=== PATIENT | male | born 1985 | race Caucasian/White ===

== ENCOUNTER 2017-03-25 18:46 | Inpatient (IN) | payer OTHER ==
[~2017-03-25] VITALS: Ht 175.3 cm; Wt 87.0 kg
[~2017-03-25 18:46] MED LIST: CARV3.12 PO; LISI-523 PO
[2017-03-25 20:24] LABS: ADD SCAN DIFF NO
[2017-03-25 20:29] LABS: BASOPHILS % 0.1 % (0.0-2.0); EOSINOPHILS % 0.1 % (0.0-7.0); HEMATOCRIT 40.6 % (42.0-52.0); HEMOGLOBIN 13.7 g/dl (14.0-18.0); LYMPHOCYTES % 10.3 % (15.0-51.0); MEAN CORPUSCULAR HEMOGLOBIN 29.1 pg (29.0-33.0); MEAN CORPUSCULAR HGB CONC 33.7 g/dl (32.0-37.0); MEAN CORPUSCULAR VOLUME 86.4 fl (82.0-101.0); MEAN PLATELET VOLUME 11.5 fl (7.4-10.4); MONOCYTES % 9.7 % (0.0-11.0); NEUTROPHILS % 79.5 % (39.0-77.0); PLATELET COUNT 182 10^3/UL (140-415); RED CELL DISTRIBUTION WIDTH 12.9 % (11.5-14.5); WHITE BLOOD COUNT 10.1 10^3/ul (4.8-10.8)
[2017-03-25 20:44] LABS: ALBUMIN 5.1 g/dl (3.3-4.9); ALBUMIN/GLOBULIN RATIO 1.64; BILIRUBIN,INDIRECT 0.3 mg/dl (0-1.1); BILIRUBIN,TOTAL 0.3 mg/dl (0.2-1.3); CALCIUM 9.4 mg/dl (8.4-10.2); CREATININE 0.92 mg/dl (0.61-1.24); POTASSIUM 3.9 mmol/L (3.5-5.1); TOTAL PROTEIN 8.2 g/dl (6.1-8.1)
[2017-03-25 21:07] LABS: TROPONIN-I 7.41 ng/ml (0.00-0.12)
[2017-03-25] MEDS ORDERED: ASPIRIN 325 MG TAB PO STA (21:07)
[2017-03-25] MEDS ORDERED: IBUPROFEN 600 MG TAB PO STA (21:12)
[2017-03-25 21:30] VITALS: TEMP 98.7
--- NOTE | 2017-03-25 21:32 | ERA ---
ER Documentation Chief Complaint Date/Time DATE: 03/25/17 TIME: 21:26 Chief Complaint intermittent CP since this am, sudden onset HPI 31-year-old man complains of pressure-like chest pain beginning this morning at around 6 AM lasting 20 minutes, resolving spontaneously, and then returning a few hours later and lasting for a few hours. Patient states discomfort is similar to previous episode he had about 2 years ago at which time he was diagnosed with myocarditis. Patient states for the last 3 days he has had tactile fevers. He denies shortness of breath, no vomiting or diarrhea, no headache or blurry vision, no calf or leg swelling. Patient has had no recent antibiotic use, no recent travel. Patient denies drug abuse. ROS All systems reviewed and are negative except as per history of present illness. Medications Home Meds Active Scripts Lisinopril* (Zestril*) 5 Mg Tab, 2.5 MG PO DAILY, #30 TAB Prov:COURT FLANNERY MD 08/20/15 Carvedilol* (Coreg*) 3.125 Mg Tab, 3.125 MG PO Q12, #60 TAB Prov:COURT FLANNERY MD 08/20/15 Allergies Allergies: Coded Allergies: No Known Allergy (Unverified , 08/19/15) PMhx/Soc History of non-ST elevation myocardial infarction and myositis, hypertension, previous coronary angiogram revealing no obstructive lesions. History of Surgery: No Anesthesia Reaction: No Hx Neurological Disorder: No Hx Respiratory Disorders: No Hx Cardiac Disorders: No Hx Psychiatric Problems: No Hx Miscellaneous Medical Probl: No Hx Alcohol Use: Yes (ONCE A WHILE BEER/WINE SATURDAY,SAT. LAST TIME WAS 1-2 GLASSES WINE LAST WEE) Hx Substance Use: No Hx Tobacco Use: Yes (6 CIGARETTEE/D, QUIT 2 MONTHS AGO) Smoking Status: Heavy tobacco smoker FmHx Family History: No diabetes Physical Exam Vitals Vital Signs Date Time Temp Pulse Resp B/P Pulse Ox O2 Delivery O2 Flow Rate FiO2 03/25/17 21:30 98.7 80 16 132/86 99 Room Air 03/25/17 19:18 87.0 95 18 151/100 99 Physical Exam GENERAL: Well-developed, well-nourished, well-hydrated, appears diaphoretic, afebrile HEENT: Moist mucous membranes, pink conjunctiva, no cervical spine tenderness or step-off deformities, no goiter, no jaundice or icterus, extraocular movements intact without pain. No submandibular induration, and no pharyngeal erythema NEURO: Alert and oriented 3, cranial nerves II through XII intact bilaterally, pupils equal round reactive to light, no focal deficits or facial asymmetry, sensation intact distally Strength 5/5 in upper and lower extremities bilaterally CARDIAC: Regular rate and rhythm, no murmurs rubs or gallops LUNGS: Clear bilaterally no wheezing crackles or stridor ABDOMEN: Soft nontender, no guarding, no rigidity, no rebound, no psoas sign no obturator sign. Normoactive bowel sounds SKIN: Warm and dry to touch, no abrasions, contusions, or hematomas, no lacerations, no ecchymosis, no target lesions, and without ulcers EXTREMITIES: No clubbing cyanosis or edema, calves are bilaterally symmetrical, no Homans sign, no popliteal cord sign. Distal pulses equal and bilateral PSYCH: Normal affect without agitation or irritability Result Diagram: 03/25/17200403/25/172004 Results 24 hrs Laboratory Tests Test 03/25/17 20:05 03/25/17 20:20 White Blood Count 10.110^3/ul Red Blood Count 4.7010^6/ul Hemoglobin 13.7g/dl Hematocrit 40.6% Mean Corpuscular Volume 86.4fl Mean Corpuscular Hemoglobin 29.1pg Mean Corpuscular Hemoglobin Concent 33.7g/dl Red Cell Distribution Width 12.9% Platelet Count 58516^3/UL Mean Platelet Volume 11.5fl Neutrophils % 79.5% Lymphocytes % 10.3% Monocytes % 9.7% Eosinophils % 0.1% Basophils % 0.1% Nucleated Red Blood Cells % 0.0/100WBC Neutrophils # 8.010^3/ul Lymphocytes # 1.010^3/ul Monocytes # 1.010^3/ul Eosinophils # 0.010^3/ul Basophils # 0.010^3/ul Nucleated Red Blood Cells # 0.010^3/ul Sodium Level 136mmol/L Potassium Level 3.9mmol/L Chloride Level 95mmol/L Carbon Dioxide Level 27mmol/L Anion Gap 18 Blood Urea Nitrogen 12mg/dl Creatinine 0.92mg/dl Glucose Level 159mg/dl Calcium Level 9.4mg/dl Total Bilirubin 0.3mg/dl Direct Bilirubin 0.00mg/dl Indirect Bilirubin 0.3mg/dl Aspartate Amino Transf (AST/SGOT) 81IU/L Alanine Aminotransferase (ALT/SGPT) 55IU/L Alkaline Phosphatase 58IU/L Troponin I 7.410ng/ml Total Protein 8.2g/dl Albumin 5.1g/dl Globulin 3.10g/dl Albumin/Globulin Ratio 1.64 Lipase 100U/L B-Type Natriuretic Peptide 1630PG/ML Current Medications Medications (Trade) Dose Ordered Sig/Lesly Route PRN Reason Start Time Stop Time Status Last Admin Dose Admin Aspirin (Aspirin) 325 mg ONCE STAT PO 03/25/17 21:07 03/25/17 21:08 DC 03/25/17 22:00 Ibuprofen (Motrin) 600 mg ONCE STAT PO 03/25/17 21:12 03/25/17 21:14 DC Clopidogrel Bisulfate 300 mg 300 mg ONCE ONCE PO 03/25/17 22:00 03/25/17 22:00 DC Sodium Chloride (NS) 1,000 ml @ 1,000 mls/hr Q1H ONCE IV 03/25/17 22:00 03/25/17 22:59 03/25/17 22:00 Ketorolac Tromethamine (Toradol) 15 mg ONCE STAT IV 03/25/17 21:52 03/25/17 21:55 DC 03/25/17 22:00 Procedures/MDM IV line was established patient was placed on field support specialist rhythm strip revealed a sinus rhythm at about 90 bpm with upright P and T waves. Patient was afebrile. EKG performed, read by me revealed a normal sinus rhythm at 92 bpm, normal axis , with a right ventricular conduction delay and a QRS duration of 106 ms, no concerning ST elevations or depressions noted. One AP view of the chest performed, read by me reveals no acute infiltrates, normal mediastinum, sharp costophrenic and cardiac borders, no air under the diaphragm. Otherwise unremarkable chest x-ray. EKG #2 performed, read by me revealed a normal sinus rhythm at 96 bpm, normal axis, right ventricular conduction delay with a QRS duration 106 ms, no concerning ST elevations or depressions noted. CBC was unremarkable, electrolytes normal, liver function tests normal, troponin positive at 7. I administered 1 L normal saline intravenously, aspirin 325 mg p.o. for cardioprotective measures. I obtained cardiology consultation with Dr. Munoz, he recommended Toradol and recommended against clopidogrel. Cardiac Critical Care: Time: 35 minutes, this was time separate from other billable procedures Treatments/Evaluations: Close monitoring for dangerous arrhythmia and cardiovascular collapse, while treating with advance cardiac medications and techniques. Patient will be admitted to Dr. Roldan to telemetry setting Departure Diagnosis: Primary Impression: Non-STEMI (non-ST elevated myocardial infarction) Additional Impression: Acute myocarditis Qualified Code: I40.9 - Acute myocarditis, unspecified myocarditis type Condition: KATHY Tarango MD Mar 25, 2017 21:31
--- NOTE | 2017-03-25 21:51 | RADRPT ---
PROCEDURE: XR Chest. CLINICAL INDICATION: Chest pain. TECHNIQUE: 2 frontal views of the chest. COMPARISON: 08/19/2015 FINDINGS: The cardiomediastinal silhouette is within normal limits. The lungs are clear. No signs of pleural f luid or pneumothorax are seen. The osseous structures and soft tissues are unremarkable. IMPRESSION: No evidence for active cardiopulmonary disease. RPTAT: [facility] Physician Sindhu Date Time Electronically viewed and signed by Ynes Peng Physician on 03/25/2017 21:51 RS/
[2017-03-25] MEDS ORDERED: KETOROLAC 15 MG INJ IV STA (21:52)
[2017-03-25] MEDS ORDERED: CLOPIDOGREL 75 MG TAB PO ONE (22:00)
[2017-03-25] MEDS ORDERED: SOD CHLORIDE 0.9% 1,000 ML IV ONE (22:00)
[2017-03-25 23:00] VITALS: Ht 175.3 cm; Wt 87.0 kg
[2017-03-25 23:00] LABS: CK-MB 29.4 ng/ml (0.0-2.4); TROPONIN-I 8.53 ng/ml (0.00-0.12)
[2017-03-25 23:01] LABS: BARBITURATES Negative (NEGATIVE); BENZODIAZEPINES Negative (NEGATIVE); CANNABINOIDS Negative (NEGATIVE); COCAINE Negative (NEGATIVE); OPIATES Negative (NEGATIVE)
[2017-03-25 23:17] VITALS: PULSE 93
[2017-03-26] VITALS (8 sets, daily range): BP systolic 105–128; BP diastolic 61–71; PULSE 59–73; RESP 16–20
[2017-03-26] MEDS ORDERED: ONDANSETRON 4 MG INJ IV PRN
[2017-03-26] MEDS ORDERED: ACETAMINOPHEN 325 MG TAB PO PRN
[2017-03-26] MEDS ORDERED: KETOROLAC 15 MG INJ IV PRN
[2017-03-26] MEDS ORDERED: ZOLPIDEM 5 MG TAB PO PRN
[2017-03-26] MEDS ORDERED: NITROGLYCERIN (SL) 0.4 MG TAB SL PRN
[2017-03-26 07:57] LABS: HAAIG REFLEX REFLEX FILED
[2017-03-26 07:59] LABS: ADD SCAN DIFF NO
[2017-03-26 08:13] LABS: BASOPHILS % 0.3 % (0.0-2.0); EOSINOPHILS % 0.5 % (0.0-7.0); HEMATOCRIT 38.4 % (42.0-52.0); HEMOGLOBIN 12.5 g/dl (14.0-18.0); LYMPHOCYTES # 2.2 10^3/ul (0.8-2.9); LYMPHOCYTES % 38.6 % (15.0-51.0); MEAN CORPUSCULAR HEMOGLOBIN 28.3 pg (29.0-33.0); MEAN CORPUSCULAR HGB CONC 32.6 g/dl (32.0-37.0); MEAN CORPUSCULAR VOLUME 86.9 fl (82.0-101.0); MEAN PLATELET VOLUME 11.9 fl (7.4-10.4); MONOCYTE # 0.7 10^3/ul (0.3-0.9); MONOCYTES % 12.5 % (0.0-11.0); NEUTROPHIL # 2.8 10^3/ul (1.6-7.5); NEUTROPHILS % 47.9 % (39.0-77.0); PLATELET COUNT 184 10^3/UL (140-415); RED BLOOD COUNT 4.42 10^6/ul (4.70-6.10); RED CELL DISTRIBUTION WIDTH 12.9 % (11.5-14.5); WHITE BLOOD COUNT 5.8 10^3/ul (4.8-10.8)
[2017-03-26 08:28] LABS: ALANINE AMINOTRANSFERASE 43 IU/L (13-69); ALBUMIN 4.1 g/dl (3.3-4.9); ALBUMIN/GLOBULIN RATIO 1.95; ALKALINE PHOSPHATASE 43 IU/L (42-121); ANION GAP 9 (8-16); ASPARTATE AMINO TRANSFERASE 64 IU/L (15-46); BILIRUBIN,INDIRECT 0.2 mg/dl (0-1.1); BILIRUBIN,TOTAL 0.2 mg/dl (0.2-1.3); BLOOD UREA NITROGEN 14 mg/dl (7-20); CALCIUM 9.4 mg/dl (8.4-10.2); CARBON DIOXIDE 29 mmol/L (21-31); CHLORIDE 100 mmol/L (97-110); CHOL/HDL RATIO 6.8 RATIO; CHOLESTEROL 178 mg/dl (100-200); CREATININE 0.87 mg/dl (0.61-1.24); GLUCOSE 118 mg/dl (70-220); HDL CHOLESTEROL 26 mg/dl (28-63); SODIUM 134 mmol/L (135-144); TOTAL PROTEIN 6.2 g/dl (6.1-8.1); TRIGLYCERIDES 147 mg/dl (0-149)
[2017-03-26] MEDS ORDERED: ASPIRIN 325 MG TAB PO SCH (09:00)
[2017-03-26] MEDS ORDERED: LISINOPRIL 5 MG TAB PO SCH (09:00)
[2017-03-26 09:13] LABS: HEPATITIS B CORE ANTIBODY NEGATIVE (NEGATIVE)
--- NOTE | 2017-03-26 10:00 | CONS ---
Date/Time of Note Date/Time of Note DATE: 03/26/17 TIME: 09:55 Assessment/Plan Assessment/Plan Additional Assessment/Plan 1. Chest Pain - more consistent with myocarditis vs ACS. Feels better now - will review ECHO. Based on histoory of FEVER, the Dx of FMF ought to be entertained - I spoke with primary team, will consider as colchicine might have a role. 2. Elevated troponins - now trending down, no arrhythmia - conservative care OK 3. Abn ecg - mild ST-T elevations, will follow ECHO r/o effusion. 4. Anxiety - primary team to follow. Consultation Date/Type/Reason Admit Date/Time Mar 25, 2017 at 21:50 Initial Consult Date 24 HR Interval Summary Free Text/Dictation Cardiology Consult: CC: Chest lepe HPI: 31-year-old man complains of pressure-like chest pain beginning this morning at around 6 AM lasting 20 minutes, resolving spontaneously, and then returning a few hours later and lasting for a few hours. Patient states discomfort is similar to previous episode he had about 2 years ago at which time he was diagnosed with myocarditis. Patient states for the last 3 days he has had tactile fevers. He denies shortness of breath, no vomiting or diarrhea , no headache or blurry vision, no calf or leg swelling. Patient has had no recent antibiotic use, no recent travel. Patient denies drug abuse. FEELS BETTER NOW. ROS All systems reviewed and are negative except as per history of present illness. Cardiology Consult: CC: Chest lepe HPI: 31-year-old man complains of pressure-like chest pain beginning this morning at around 6 AM lasting 20 minutes, resolving spontaneously, and then returning a few hours later and lasting for a few hours. Patient states discomfort is similar to previous episode he had about 2 years ago at which time he was diagnosed with myocarditis. Patient states for the last 3 days he has had tactile fevers. He denies shortness of breath, no vomiting or diarrhea , no headache or blurry vision, no calf or leg swelling. Patient has had no recent antibiotic use, no recent travel. Patient denies drug abuse. FEELS BETTER NOW. ROS All systems reviewed and are negative except as per history of present illness. ROS: + fever, + chills, no nausea, no vomiting, no diarrhea/constipation No recent weight changes No chest pain, no PND, no orthopnea No dizziness, blurred vision No thirst, no heat or cold intolerance Medications Home Meds Active Scripts Lisinopril* (Zestril*) 5 Mg Tab, 2.5 MG PO DAILY, #30 TAB Carvedilol* (Coreg*) 3.125 Mg Tab, 3.125 MG PO Q12, #60 TAB FH: FATHER h/o CAD/NC Exam/Review of Systems Vital Signs Vitals Vital Signs Date Time Temp Pulse Resp B/P Pulse Ox O2 Delivery O2 Flow Rate FiO2 03/26/17 08:00 68 03/26/17 07:36 98.0 19 120/61 99 03/26/17 00:00 Room Air Intake and Output 03/25/17 03/25/17 03/26/17 15:00 23:00 07:00 Intake Total 500 ml Balance 500 ml Exam General: WN/WD/NAD, AOx 3 HEENT: Unicetric/atraumatic/EOMI (follow commands) NECK: JVD elevated, no thyromegaly Lymph: no lymphadenopathy HEART: regular with no S3, II/ systolic murmur at apex, no rub LUNGS: Coarse sounds ABD: soft, NT, ND, +BS : Intact Neuro: non focal SKIN: chronic changes EXT: trace edema Results Result Diagram: 03/26/1770203/26/17 07 Results 24 hrs Laboratory Tests Test 03/25/17 19:51 03/25/17 20:05 03/25/17 20:20 03/25/17 22:00 Urine Opiates Screen Negative Urine Barbiturates Negative Urine Amphetamines Screen Negative Urine Benzodiazepines Screen Negative Urine Cocaine Screen Negative Urine Cannabinoids Negative White Blood Count 10.1 # Red Blood Count 4.70 Hemoglobin 13.7 L Hematocrit 40.6 L Mean Corpuscular Volume 86.4 Mean Corpuscular Hemoglobin 29.1 Mean Corpuscular Hemoglobin Concent 33.7 Red Cell Distribution Width 12.9 Platelet Count 182 Mean Platelet Volume 11.5 H Neutrophils % 79.5 H Lymphocytes % 10.3 L Monocytes % 9.7 Eosinophils % 0.1 Basophils % 0.1 Nucleated Red Blood Cells % 0.0 Neutrophils # 8.0 H Lymphocytes # 1.0 Monocytes # 1.0 H Eosinophils # 0.0 Basophils # 0.0 Nucleated Red Blood Cells # 0.0 Sodium Level 136 Potassium Level 3.9 Chloride Level 95 L Carbon Dioxide Level 27 Anion Gap 18 H Blood Urea Nitrogen 12 Creatinine 0.92 Glucose Level 159 Calcium Level 9.4 Total Bilirubin 0.3 Direct Bilirubin 0.00 Indirect Bilirubin 0.3 Aspartate Amino Transf (AST/SGOT) 81 H Alanine Aminotransferase (ALT/SGPT) 55 Alkaline Phosphatase 58 Troponin I 7.410 *H 8.530 *H Total Protein 8.2 H Albumin 5.1 H Globulin 3.10 Albumin/Globulin Ratio 1.64 Lipase 100 B-Type Natriuretic Peptide 1630 H Creatine Kinase 463 H Creatine Kinase Index 6.3 Creatinine Kinase MB (Mass) 29.40 H Test 03/26/17 07:03 White Blood Count 5.8 # Red Blood Count 4.42 L Hemoglobin 12.5 L Hematocrit 38.4 L Mean Corpuscular Volume 86.9 Mean Corpuscular Hemoglobin 28.3 L Mean Corpuscular Hemoglobin Concent 32.6 Red Cell Distribution Width 12.9 Platelet Count 184 Mean Platelet Volume 11.9 H Neutrophils % 47.9 Lymphocytes % 38.6 Monocytes % 12.5 H Eosinophils % 0.5 Basophils % 0.3 Nucleated Red Blood Cells % 0.0 Neutrophils # 2.8 Lymphocytes # 2.2 Monocytes # 0.7 Eosinophils # 0.0 Basophils # 0.0 Nucleated Red Blood Cells # 0.0 Sodium Level 134 L Potassium Level 4.0 Chloride Level 100 Carbon Dioxide Level 29 Anion Gap 9 # Blood Urea Nitrogen 14 Creatinine 0.87 Glucose Level 118 # Calcium Level 9.4 Total Bilirubin 0.2 Direct Bilirubin 0.00 Indirect Bilirubin 0.2 Aspartate Amino Transf (AST/SGOT) 64 H Alanine Aminotransferase (ALT/SGPT) 43 Alkaline Phosphatase 43 Troponin I 6.360 *H Total Protein 6.2 # Albumin 4.1 # Globulin 2.10 Albumin/Globulin Ratio 1.95 Triglycerides Level 147 Cholesterol Level 178 LDL Cholesterol, Calculated 123 HDL Cholesterol 26 L Cholesterol/HDL Ratio 6.8 Hepatitis B Surface Antigen NEGATIVE Hepatitis B Core Total Antibody NEGATIVE Hepatitis C Antibody NEGATIVE Medications Medications Current Medications Carvedilol (Coreg) 3.125 mg BID PO Last administered on 03/26/17 09:04; Admin Dose 3.125 MG; Start 03/26/17 at 00:00 Aspirin (Aspirin) 325 mg DAILY PO Last administered on 03/26/17 08:57; Admin Dose 325 MG; Start 03/26/17 at 09:00 Lisinopril (Zestril) 5 mg DAILY PO Last administered on 03/26/17t 09:03; Admin Dose 5 MG; Start 03/26/17 at 09:00 Acetaminophen (Tylenol Tab) 650 mg Q4H PRN PO PAIN AND OR ELEVATED TEMP; Start 03/26/17 at 00:00 Ondansetron HCl (Zofran Inj) 4 mg Q6H PRN IV NAUSEA AND/OR VOMITING; Start 08/02 at 00:00 Ketorolac Tromethamine (Toradol) 15 mg Q8 PRN IV PAIN; Start 03/26/17 at 00:00 ; Stop 03/29/17 at 00:00 Zolpidem Tartrate (Ambien) 5 mg HS PRN PO INSOMNIA; Start 03/26/17 at 00:00 Nitroglycerin (Nitroglycerin (Sl Tab) 0.4 Mg) 1 tab Q5M PRN SL ANGINA; Start at 00:00 ROXANNA MONTAÑO MD Mar 26, 2017 10:00
--- NOTE | 2017-03-26 11:12 | RADRPT ---
Echocardiogram Report Patient Name: DEONTE SMITH Gender: Male Date: 1985 Study Date: 26-Mar-2017 [employer]orer/Designer: [place] [facility] Location: 5561 Ref. Physician: KATHY RUSHING Quality: Good Procedures: Transthoracic echocardiogram with complete 2D, M-Mode, and doppler examination. Indications: NSTEMI. 2D/M Mode Doppler Measurement Value Normal Ranges Measurement Value Normal Ranges LVIDd 2D 4.8 3.5 - 5.6 cm AV Peak Quique 1.3 m/sec LVIDs 2D 3.7 2.1 - 4.1 cm AV Peak PG 6.7 mmHg LVPWd 2D 0.8 0.6 - 1.1 cm LVOT Peak Quique 1.1 m/sec IVSd 2D 1.0 0.6 - 1.1 cm LVOT Peak PG 4.6 mmHg AoR Diam 2D 2.6 2.0 - 3.7 cm MV E Peak Quique 0.7 m/sec EDV 2D 104.9 cm3 MV A Peak Quique 0.5 m/sec ESV 2D 52.5 cm3 MV E/A 1.4 LA Dimen 2D 3.1 2.3 - 4.0 cm MV Decel Time 228 msec MV Decel [place] 3 MV E/A 1.4 TR Peak Quique 2.3 m/sec TR Peak PG 22.0 mmHg RVSP 25.0 mmHg Findings Left Ventricle: Normal left ventricular systolic function. Normal left ventricular cavity size. Normal left ventricular wall thickness. Ejection fraction is visually estimated at 55 %. Tissue Doppler/Mitral Doppler indices are within normal limits. Right Ventricle: Normal right ventricular size. Normal right ventricular systolic function. Left Atrium: The left atrium is normal in size. Right Atrium: The right atrium is normal in size. Mitral Valve: Normal appearance and function of the mitral valve with trace physiologic regurgitation. Aortic Valve: Normal appearance of the aortic valve. No significant aortic stenosis or insufficiency. Tricuspid Valve: Normal appearance of the tricuspid valve. Estimated peak PA systolic pressure 25 mmHg. There is trace tricuspid regurgitation. Pulmonic Valve: Normal pulmonic valve appearance. Pericardium: Normal pericardium with no significant pericardial effusion. Aorta: Normal aortic root. IVC: Normal size and normal respiratory collapse consistent with normal right atrial pressure. Conclusions 1.Normal left ventricular systolic function. Normal left ventricular cavity size. Normal left ventricular wall thickness. Ejection fraction is visually estimated at 55 %. Tissue Doppler/Mitral Doppler indices are within normal limits. 2.Normal appearance and function of the mitral valve with trace physiologic regurgitation. 3.Normal appearance of the aortic valve. No significant aortic stenosis or insufficiency. 4.Normal appearance of the tricuspid valve. Estimated peak PA systolic pressure 25 mmHg. There is trace tricuspid regurgitation. Electronically Signed By: Kevin Munoz 26-Mar-2017 11:11:48 -0700 Patient Name: DEONTE SMITH Study Date: 26-Mar-[id number]
--- NOTE | 2017-03-26 13:38 | QN ---
Documentation Comment 1. cards" myocarditis, plan to treat empirically for FMF, send work up for myocarditis, and follow up test and additional work up with cards GIANNI NAVARRO MD Mar 26, 2017 13:38
[2017-03-26] MEDS ORDERED: COLC0.6T6 PO (13:51)
--- NOTE | 2017-03-26 13:52 | PDOCDIS ---
Discharge Instructions DIAGNOSIS Discharge Diagnosis 1. myocarditis CONDITION Patient Condition: Good HOME CARE INSTRUCTIONS: Diet Instructions: Regular ACTIVITY: Activity Restrictions: Slowly Increase Activity FOLLOW UP/APPOINTMENTS Follow-up Plan 1. follow up with dr slater in 1-2 weeks GIANNI NAVARRO MD Mar 26, 2017 13:52
--- NOTE | 2017-03-26 14:00 | DS ---
Date/Time of Note Date/Time of Note DATE: 03/26/17 TIME: 13:55 Discharge Summary Admission/Discharge Info Admit Date/Time Mar 25, 2017 at 21:50 Discharge Date/Time Discharge Diagnosis 1. myocarditis Patient Condition: Good Consults mohini salter md- cardiology Procedures echo: ef 55% no evidence of pericardial effusion Hospital Course patient admitted with chest pain and elevated troponin. However, EKG is relatively normal. He had a similar episode in 08/2015. It is the opinion here that he has myocarditis. He had an angiogram in 08/2015 which showed no significant coronary artery disease. Dr Salter saw the patient, no further ischemia workup is felt to be warranted at this time. 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 In addition, we will send off serologies for other causes of myocarditis. The following tests are sent at time of patient discharge to be followed up on with dr salter in 1-2 weeks in the office: ASO titer, TESSA, dsDNA Ab, ANCA, urine tox screen. Anti-heart Ab panel Home Meds Active Scripts Colchicine* (Colcrys*) 0.6 Mg Tablet, 1.2 MG PO DAILY for 30 Days, #60 TAB Prov:GIANNI NAVARRO MD 03/26/17 Lisinopril* (Zestril*) 5 Mg Tab, 2.5 MG PO DAILY, #30 TAB Prov:COURT FLANNERY MD 08/20/15 Carvedilol* (Coreg*) 3.125 Mg Tab, 3.125 MG PO Q12, #60 TAB Prov:COURT FLANNERY MD 08/20/15 Follow-up Plan follow up with dr salter 1-2 weeks Primary Care Provider Not On Staff Doctor Time spent on discharge: > 30 minutes Pending Labs Laboratory Tests Test 03/25/17 19:51 03/25/17 20:05 03/25/17 20:20 03/25/17 22:00 Urine Opiates Screen Negative (NEGATIVE) Urine Barbiturates Negative (NEGATIVE) Urine Amphetamines Screen Negative (NEGATIVE) Urine Benzodiazepines Screen Negative (NEGATIVE) Urine Cocaine Screen Negative (NEGATIVE) Urine Cannabinoids Negative (NEGATIVE) White Blood Count 10.110^3/ul (4.8-10.8) Red Blood Count 4.7010^6/ul (4.70-6.10) Hemoglobin 13.7g/dl (14.0-18.0) Hematocrit 40.6% (42.0-52.0) Mean Corpuscular Volume 86.4fl (82.0-101.0) Mean Corpuscular Hemoglobin 29.1pg (29.0-33.0) Mean Corpuscular Hemoglobin Concent 33.7g/dl (32.0-37.0) Red Cell Distribution Width 12.9% (11.5-14.5) Platelet Count 50885^3/UL (140-415) Mean Platelet Volume 11.5fl (7.4-10.4) Neutrophils % 79.5% (39.0-77.0) Lymphocytes % 10.3% (15.0-51.0) Monocytes % 9.7% (0.0-11.0) Eosinophils % 0.1% (0.0-7.0) Basophils % 0.1% (0.0-2.0) Nucleated Red Blood Cells % 0.0/100WBC (0.0-0.0) Neutrophils # 8.010^3/ul (1.6-7.5) Lymphocytes # 1.010^3/ul (0.8-2.9) Monocytes # 1.010^3/ul (0.3-0.9) Eosinophils # 0.010^3/ul (0.0-0.5) Basophils # 0.010^3/ul (0.0-0.1) Nucleated Red Blood Cells # 0.010^3/ul (0.0-0.0) Sodium Level 136mmol/L (135-144) Potassium Level 3.9mmol/L (3.5-5.1) Chloride Level 95mmol/L (97-110) Carbon Dioxide Level 27mmol/L (21-31) Anion Gap 18 (8-16) Blood Urea Nitrogen 12mg/dl (7-20) Creatinine 0.92mg/dl (0.61-1.24) Glucose Level 159mg/dl (70-220) Calcium Level 9.4mg/dl (8.4-10.2) Total Bilirubin 0.3mg/dl (0.2-1.3) Direct Bilirubin 0.00mg/dl (0.00-0.20) Indirect Bilirubin 0.3mg/dl (0-1.1) Aspartate Amino Transf (AST/SGOT) 81IU/L (15-46) Alanine Aminotransferase (ALT/SGPT) 55IU/L (13-69) Alkaline Phosphatase 58IU/L (42-121) Troponin I 7.410ng/ml (0.00-0.12) 8.530ng/ml (0.00-0.12) Total Protein 8.2g/dl (6.1-8.1) Albumin 5.1g/dl (3.3-4.9) Globulin 3.10g/dl (1.3-3.2) Albumin/Globulin Ratio 1.64 Lipase 100U/L (23-300) B-Type Natriuretic Peptide 1630PG/ML (0-125) Creatine Kinase 463IU/L (23-200) Creatine Kinase Index 6.3 Creatinine Kinase MB (Mass) 29.40ng/ml (0.0-2.4) Test 03/26/17 07:03 White Blood Count 5.810^3/ul (4.8-10.8) Red Blood Count 4.4210^6/ul (4.70-6.10) Hemoglobin 12.5g/dl (14.0-18.0) Hematocrit 38.4% (42.0-52.0) Mean Corpuscular Volume 86.9fl (82.0-101.0) Mean Corpuscular Hemoglobin 28.3pg (29.0-33.0) Mean Corpuscular Hemoglobin Concent 32.6g/dl (32.0-37.0) Red Cell Distribution Width 12.9% (11.5-14.5) Platelet Count 79553^3/UL (140-415) Mean Platelet Volume 11.9fl (7.4-10.4) Neutrophils % 47.9% (39.0-77.0) Lymphocytes % 38.6% (15.0-51.0) Monocytes % 12.5% (0.0-11.0) Eosinophils % 0.5% (0.0-7.0) Basophils % 0.3% (0.0-2.0) Nucleated Red Blood Cells % 0.0/100WBC (0.0-0.0) Neutrophils # 2.810^3/ul (1.6-7.5) Lymphocytes # 2.210^3/ul (0.8-2.9) Monocytes # 0.710^3/ul (0.3-0.9) Eosinophils # 0.010^3/ul (0.0-0.5) Basophils # 0.010^3/ul (0.0-0.1) Nucleated Red Blood Cells # 0.010^3/ul (0.0-0.0) Sodium Level 134mmol/L (135-144) Potassium Level 4.0mmol/L (3.5-5.1) Chloride Level 100mmol/L (97-110) Carbon Dioxide Level 29mmol/L (21-31) Anion Gap 9 (8-16) Blood Urea Nitrogen 14mg/dl (7-20) Creatinine 0.87mg/dl (0.61-1.24) Glucose Level 118mg/dl (70-220) Calcium Level 9.4mg/dl (8.4-10.2) Total Bilirubin 0.2mg/dl (0.2-1.3) Direct Bilirubin 0.00mg/dl (0.00-0.20) Indirect Bilirubin 0.2mg/dl (0-1.1) Aspartate Amino Transf (AST/SGOT) 64IU/L (15-46) Alanine Aminotransferase (ALT/SGPT) 43IU/L (13-69) Alkaline Phosphatase 43IU/L (42-121) Troponin I 6.360ng/ml (0.00-0.12) Total Protein 6.2g/dl (6.1-8.1) Albumin 4.1g/dl (3.3-4.9) Globulin 2.10g/dl (1.3-3.2) Albumin/Globulin Ratio 1.95 Triglycerides Level 147mg/dl (0-149) Cholesterol Level 178mg/dl (100-200) LDL Cholesterol, Calculated 123mg/dl HDL Cholesterol 26mg/dl (28-63) Cholesterol/HDL Ratio 6.8RATIO Hepatitis B Surface Antigen NEGATIVE (NEGATIVE) Hepatitis B Core Total Antibody NEGATIVE (NEGATIVE) Hepatitis C Antibody NEGATIVE (NEGATIVE) Microbiology Date/Time Source Procedure Growth Status 03/26/17 00:40 Throat Group A Strep Rapid Antigen - Final Complete GIANNI NAVARRO MD Mar 26, 2017 14:00
--- NOTE | 2017-03-28 10:24 | HP ---
DATE OF ADMISSION: 03/25/2017 CHIEF COMPLAINT: Chest pain. HISTORY OF PRESENT ILLNESS: The patient presents to the emergency room [facility] with chest pain which he describes as pressure-like and central occurring 1 or 2 occasions prior to presentation. There was no radiation. He denies shortness of breath, nausea or vomiting. The patient states that he had a recent illness with sore throat and fevers leading up to this episode. PAST MEDICAL HISTORY: Significant for prior diagnosis of myocarditis. He was admitted to this hospital in August 2015 with this, underwent urgent coronary angiography for elevated troponin as well as EKG changes. At that time, his coronary arteries were without obstructive lesion and he was discharged. MEDICATIONS: Outpatient nil. ALLERGIES: NONE KNOWN. SOCIAL HISTORY: Patient lives at home in [place] with his parents. He is working as an IT Tech. Denies tobacco. Rare alcohol. No illicit drug use. FAMILY HISTORY: Noncontributory and specifically negative for anybody with recurrent episodes of unexplained fever. REVIEW OF SYSTEMS: Five systems reviewed and found not to be revealing. PHYSICAL EXAMINATION: VITAL SIGNS: On examination, blood pressure is 112/71, pulse rate 72, respirations 20, temperature is 98.2. GENERAL: Pleasant man, no acute distress. Alert and oriented x3. HEENT: Normocephalic, atraumatic. Without any scleral icterus, perioral cyanosis. Mucous membranes moist. NECK: Soft and supple, without masses. No evidence of jugular venous distention. No carotid bruits. CHEST: Clear to auscultation percussion bilaterally. HEART: Regular rate and rhythm. S1-S2. No added sounds. ABDOMEN: Soft, nontender, nondistended, without palpable hepatosplenomegaly. EXTREMITIES: Without clubbing, cyanosis, or edema. SKIN: Without rashes. NEUROLOGIC: Grossly intact. LABORATORY STUDIES: Reveal a hemoglobin of 12.5 g/dL, white count of 5800, platelets of 184,000. Sodium 134, potassium 4.0, chloride 100, bicarbonate 29, BUN 14, creatinine 0.7, glucose 118. Liver function tests remarkable only for an AST of 64. Troponin was positive at 7.410, peak value at 8.53 and now 6.36. BNP is 1630. Patient had an echocardiogram performed, which reveals an ejection fraction of 55 percent. No evidence of pericardial effusion. No significant valvular lesion. ASSESSMENT AND PLAN: Cardiac: The patient has now had 2 episodes of presentation for chest pain with elevated troponin. However, on his last exam he did not have any significant coronary artery disease, and it is presumed at this point, that he has myocarditis rather than ischemic cardiac disease. The etiology of this remains very much unclear. We are currently entertaining the possibility of familial Mediterranean fever and will begin the patient empirically on colchicine. We will, however, also consider other causes of myocarditis and continue to work these up at this time. Dictated By: Hernesto Rowan MD /[email or web address] /Document#: [id number]
== END 2017-03-26 15:40 | disposition home or self-care (01) | DRG 316 ==
LOC: FTE 18:46 → MS4 21:50
PROVIDERS: ADMIT Internal Medicine; ATTEND Internal Medicine
DX: I51.4 Myocarditis, unspecified (principal); F41.9 Anxiety disorder, unspecified; R94.31 Abnormal electrocardiogram [ECG] [EKG]; R79.89 Other specified abnormal findings of blood chemistry
CPT/HCPCS: 71010; 80053; 80061; 80307; 82550; 82553; 83690; 83880; 84484; 85025; 86704; 86709; 86803; 87340; 87880; 93005; 93306; 96374; J1885; J7030